=== PATIENT | female | born 1965 | race Caucasian/White ===

== ENCOUNTER → 2021-02-26 | Outpatient (CLI) | payer BC ==
[2021-02-26 12:04] LABS: HEMOGLOBIN 12.9 gm/dl (12.3-15.3); RED BLOOD COUNT 4.37 M/UL (4.00-5.10); WHITE BLOOD COUNT 6.5 K/UL (4.5-11.0)
[2021-02-26 12:24] LABS: BUN/CREATININE RATIO 16 (0-10)
== END ==
LOC: LAB 10:44
PROVIDERS: Nurse Practitioner
DX: Z00.00 Encounter for general adult medical examination without abnormal findings (principal); R53.83 Other fatigue; R73.09 Other abnormal glucose; E55.9 Vitamin D deficiency, unspecified; R12 Heartburn; Z79.01 Long term (current) use of anticoagulants; Z79.899 Other long term (current) drug therapy
CPT/HCPCS: 36415; 80053; 80061; 82607; 82746; 83036; 83735; 84443; 85025

== ENCOUNTER → 2021-05-28 | Outpatient (CLI) | payer BC | LOC: KOH-I 15:11 | DX: M89.312 Hypertrophy of bone, left shoulder (principal); M89.311 Hypertrophy of bone, right shoulder; R20.2 Paresthesia of skin; M25.511 Pain in right shoulder | CPT/HCPCS: 72040; 73000 ==

== ENCOUNTER → 2021-09-23 | Outpatient (CLI) | payer BC | LOC: EXRD 10:16 | DX: M79.673 Pain in unspecified foot (principal); Z79.899 Other long term (current) drug therapy; Z87.39 Personal history of other diseases of the musculoskeletal system and connective tissue; M54.50 Low back pain, unspecified; M47.816 Spondylosis without myelopathy or radiculopathy, lumbar region | CPT/HCPCS: 72100; 73630 ==

== ENCOUNTER → 2022-02-08 | Outpatient (CLI) | payer BC | LOC: MAMO 12:53 → EXRD 12:53 → MAMO 14:30 | DX: Z12.31 Encounter for screening mammogram for malignant neoplasm of breast (principal); Z78.0 Asymptomatic menopausal state | CPT/HCPCS: 77063; 77067; 77080 ==

== ENCOUNTER → 2022-03-25 | Outpatient (CLI) | payer BC ==
[2022-03-25 12:34] LABS: HEMOGLOBIN 13.3 gm/dl (12.3-15.3); RED BLOOD COUNT 4.25 M/UL (4.00-5.10); WHITE BLOOD COUNT 7.1 K/UL (4.5-11.0)
[2022-03-25 12:51] LABS: BUN/CREATININE RATIO 9 (0-10)
== END ==
LOC: LAB 11:27
PROVIDERS: Nurse Practitioner
DX: E78.5 Hyperlipidemia, unspecified (principal); M25.50 Pain in unspecified joint; R53.83 Other fatigue
CPT/HCPCS: 36415; 80053; 80061; 84439; 84443; 85025

== ENCOUNTER → 2022-03-28 | Outpatient (CLI) | payer BC | LOC: EXRD 12:52 | DX: M79.671 Pain in right foot (principal); M77.31 Calcaneal spur, right foot | CPT/HCPCS: 73630 ==